=== PATIENT | female | born 1965 | race Caucasian/White ===

== ENCOUNTER 2019-10-16 00:55 | Outpatient (CLI) | payer BC, SELFPAY ==
[2019-10-16 19:21] LABS: SARS-CoV-2 RNA PCR Negative
== END 2019-10-16 00:56 | disposition home or self-care (01) ==
LOC: ANHCOVIDDT 00:56
PROVIDERS: PCP Nurse Practitioner Family; Visit Provider Internal Medicine Gastroenterology
DX: Z01.812 Encounter for preprocedural laboratory examination (principal); Z11.59 Encounter for screening for other viral diseases
CPT/HCPCS: 87635; C9803; U0003

== ENCOUNTER 2019-10-18 02:50 | Day surgery (SDC) | payer BC, SELFPAY ==
[2019-10-11 14:01] VITALS: BMI 29.0
[2019-10-18 06:10] VITALS: BP 106/62; PULSE 44; RESP 16; TEMP 36.5; O2SAT 100; BMI 30.3
[2019-10-18] MEDS: LACTATED RINGERS 1,000 ML 150 ML IV CONT (06:33)
--- NOTE | 2019-10-18 06:42 | WPDANESEPPF ---
Anes - Initial Pre Proc Eval Procedure: Operation Date: 10/18/19 07:30 Proposed Procedures p Screening Colonoscopy - Adrian Garcia MD Date/Time: 10/18/19 06:42 Surgeon: Adrian Garcia MD Pre Op Diagnosis: Neoplasm Screening Patient Data Age: 54 Gender: F Height: 1.65 m Weight: 82.6 kg Last Vital Signs Temp 36.5 C 10/18/19 06:10 Pulse 44 L 10/18/19 06:10 Resp 16 10/18/19 06:10 BP 106/62 10/18/19 06:10 Pulse Ox 100 10/18/19 06:10 Allergies Allergy/AdvReac Type Severity Reaction Status Date / Time No Known Allergies Allergy Verified 10/18/19 06:18 Home Medications Medication Instructions Recorded Confirmed Type fluoxetine 20 mg PO QAM 10/11/19 10/11/19 History hydrochlorothiazide 12.5 mg PO QAM 10/11/19 10/11/19 History levothyroxine [Euthyrox] 25 mcg PO QAM 10/11/19 10/11/19 History pantoprazole 40 mg PO QAM 10/11/19 10/11/19 History phentermine 37.5 mg PO QAM 10/11/19 10/11/19 History pseudoephedrine HCl [Sudafed 24 240 mg PO DAILY 10/11/19 10/11/19 History Hour] Patient hx anesthesia problems: none Family hx anesthesia problems: none PMFSH Past Medical History Medical History (Updated 10/18/19 @ 06:44 by Freddy Macias MD) Gastroesophageal reflux disease Hypothyroidism Obesity Anes - Eval Final PreProcedure Day of Procedure 10/18/19 06:42 Patient weight: obese Heart: regular rate and rhythm Lungs: clear to auscultation and normal air movement Airway: Mallampati scale class II Neurological: alert and oriented Last oral intake: >/= 8 hours ASA classification: II Emergent: no Anesthetic plan: proceed Anesthesia type and monitoring: general GIVS Informed Consent: The patient's anesthetic plan and its attendant risks and benefits were discussed with the patient/family/POA. Questions were solicited and answers provided to the satisfaction of the patient/family/POA.
--- NOTE | 2019-10-18 07:09 | PM.HPGS ---
History of Present Illness History of Present Illness Consent: Risks, benefits, and alternatives have been discussed and questions answered. Patient agrees to proceed with procedure. Chief complaint: Neoplasm Screening Narrative: Annalise Leahy is a 54 year old female Referred for screening colonoscopy. She has a family history of colon cancer in her father PMFSH Past Medical History Medical History Gastroesophageal reflux disease Hypothyroidism Obesity Meds Home Medications and Allergies Home Medications Medication Instructions Recorded Confirmed Type fluoxetine 20 mg PO QAM 10/11/19 10/11/19 History hydrochlorothiazide 12.5 mg PO QAM 10/11/19 10/11/19 History levothyroxine [Euthyrox] 25 mcg PO QAM 10/11/19 10/11/19 History pantoprazole 40 mg PO QAM 10/11/19 10/11/19 History phentermine 37.5 mg PO QAM 10/11/19 10/11/19 History pseudoephedrine HCl [Sudafed 24 240 mg PO DAILY 10/11/19 10/11/19 History Hour] Allergies Allergy/AdvReac Type Severity Reaction Status Date / Time No Known Allergies Allergy Verified 10/18/19 06:18 Vital Signs Vital Signs - 24 hr 10/18/19 06:10 Temperature 36.5 C Pulse Rate 44 L Respiratory Rate 16 Blood Pressure 106/62 Pulse Oximetry 100 Exam Resp: Auscultation: clear to auscultation bilaterally Cardio: Rate: regular rate Rhythm: regular rhythm GI: GI Palp: Yes Soft to palpation and No Tenderness to palpation present (GI) Assessment and Plan Assessment and plan (1) Colon cancer screening: Code(s): Z12.11 - Encounter for screening for malignant neoplasm of colon Status: Acute Assessment and Plan: Colonoscopy with possible biopsy or polypectomy or cautery or injection of substances.
[2019-10-18 07:48] VITALS: BP 92/42; PULSE 54; RESP 16; O2SAT 100
[2019-10-18 07:58] VITALS: BP 93/49; PULSE 53; RESP 13; O2SAT 100
[2019-10-18 08:08] VITALS: BP 99/59; PULSE 47; RESP 14; O2SAT 100
== END 2019-10-18 08:17 | disposition home or self-care (01) ==
PROVIDERS: PCP Nurse Practitioner Family; Visit Provider Internal Medicine Gastroenterology
PROC: 0DJD8ZZ Inspection of Lower Intestinal Tract, Via Natural or Artificial Opening Endoscopic (ICD-10-PCS; CPT 45378; principal; 2019-10-18 07:30)
DX: Z12.11 Encounter for screening for malignant neoplasm of colon (principal); K63.89 Other specified diseases of intestine; Z80.0 Family history of malignant neoplasm of digestive organs; K21.9 Gastro-esophageal reflux disease without esophagitis; E03.9 Hypothyroidism, unspecified; E66.9 Obesity, unspecified; Z68.30 Body mass index [BMI] 30.0-30.9, adult
CPT/HCPCS: 45378; J2704; J7120